=== PATIENT | female | born 1945 | race Caucasian/White ===

== ENCOUNTER 2017-03-19 10:27 | Inpatient (IN) | payer MEDICARE, OTHER ==
[~2017-03-19] VITALS: Ht 152.4 cm; Wt 76.7 kg
[2017-03-19 11:12] LABS: BASOPHIL % 0.7 % (0-2); PLATELET COUNT 179 x10^3mcL (130-400); RED CELL DISTRIBUTION WIDTH 14.3 % (11.5-14.5)
[2017-03-19] MEDS ORDERED: ASPIR 8181 MG PO (11:23)
[2017-03-19 11:24] LABS: CALCIUM 8.7 mg/dL (8.5-10.1); CARBON DIOXIDE 30.5 mmol/L (21-32); CHLORIDE SERUM 101 mmol/L (98-107); CREATININE SERUM 0.8 mg/dL (0.6-1.0); GLUCOSE SERUM 119 mg/dL (74-106); POTASSIUM SERUM 5.4 mmol/L (3.5-5.1); SODIUM SERUM 134 mmol/L (136-145)
[2017-03-19] MEDS ORDERED: METOPROLOL TART25 M1 PO (11:24)
[2017-03-19] MEDS ORDERED: ACETAMINOPHEN (11:25)
[2017-03-19] MEDS ORDERED: MILK OF MAGNESIA (11:27)
[2017-03-19 11:28] LABS: ALKALINE PHOSPHATASE 98 U/L (46-116); ALT/SGPT 22 U/L (14-59); AST/SGOT 23 U/L (15-37); BILIRUBIN TOTAL 0.47 mg/dL (0.20-1.00); LIPASE 125 IU/L (73-393); TOTAL PROTEIN, SERUM 7.6 g/dL (6.4-8.2); TRIGLYCERIDES 93 mg/dL (<150)
[2017-03-19] MEDS ORDERED: FLEET (11:28)
[2017-03-19] MEDS ORDERED: DULCOLAX SUPPOSITORY (11:29)
[2017-03-19 11:31] LABS: ALBUMIN 2.5 g/dL (3.4-5.0); CHOLESTEROL 130 mg/dL (<200); CHOLESTEROL/HDL RATIO 5.4; HDL CHOLESTEROL 24 mg/dL (40-60)
[2017-03-19] MEDS ORDERED: NORCO (11:31)
[2017-03-19 11:37] LABS: FREE T4 1.61 ng/dL (0.76-1.46); T4(THYROXINE) 9.9 ug/dL (4.7-13.3)
[2017-03-19 11:45] LABS: T3 TOTAL 0.9 ng/mL
[2017-03-19 14:15] VITALS: BP 163/79
[2017-03-19 14:31] VITALS: Ht 152.4 cm; Wt 76.7 kg
[2017-03-19 15:32] LABS: MAGNESIUM 2.2 mg/dL (1.8-2.4); PHOSPHOROUS 4.1 mg/dL (2.5-4.9)
[2017-03-19 17:09] VITALS: BP 118/72
[2017-03-19 18:12] LABS: RED BLOOD CELLS 3.09 M/mm3 (4.10-5.10)
[2017-03-19 18:52] LABS: IRON 29 ug/dL (50-170); TOTAL IRON BINDING CAPACITY 146 ug/dL (250-450)
[2017-03-19 21:08] VITALS: BP 142/66
[2017-03-20 05:47] VITALS: BP 127/76
[2017-03-20 06:18] LABS: BASOPHIL % 0.3 % (0-2); PLATELET COUNT 155 x10^3mcL (130-400); RED CELL DISTRIBUTION WIDTH 14.5 % (11.5-14.5)
[2017-03-20 06:23] LABS: CALCIUM 7.9 mg/dL (8.5-10.1); CARBON DIOXIDE 28.3 mmol/L (21-32); CHLORIDE SERUM 101 mmol/L (98-107); CREATININE SERUM 0.8 mg/dL (0.6-1.0); GLUCOSE SERUM 120 mg/dL (74-106); MAGNESIUM 1.9 mg/dL (1.8-2.4); POTASSIUM SERUM 3.8 mmol/L (3.5-5.1); SODIUM SERUM 135 mmol/L (136-145)
[2017-03-20 08:21] VITALS: BP 168/85
[2017-03-20 12:56] VITALS: BP 118/92
[2017-03-20 17:04] VITALS: BP 138/70
[2017-03-21 01:09] VITALS: BP 150/71
[2017-03-21 06:17] VITALS: BP 153/80
[2017-03-21 06:29] LABS: BASOPHIL % 0.4 % (0-2); PLATELET COUNT 161 x10^3mcL (130-400); RED CELL DISTRIBUTION WIDTH 14.4 % (11.5-14.5)
[2017-03-21 07:00] LABS: CALCIUM 8.1 mg/dL (8.5-10.1); CARBON DIOXIDE 27.9 mmol/L (21-32); CHLORIDE SERUM 102 mmol/L (98-107); CREATININE SERUM 0.9 mg/dL (0.6-1.0); GLUCOSE SERUM 143 mg/dL (74-106); POTASSIUM SERUM 3.7 mmol/L (3.5-5.1); SODIUM SERUM 136 mmol/L (136-145)
[2017-03-21 08:41] VITALS: BP 132/59
[2017-03-21] MEDS ORDERED: FER300 PO (13:55)
[2017-03-21] MEDS ORDERED: KEFLEX500 M1 PO ×2 (13:57→18:46)
[2017-03-21] MEDS ORDERED: LAC PO ×2 (13:58→18:46)
[2017-03-21] MEDS ORDERED: PHARMASSURE VI500 MG PO ×2 (14:00→18:46)
[2017-03-21 15:23] VITALS: BP 132/59
[2017-03-21] MEDS ORDERED: FERROUS SULFAT325 M2 PO (18:46)
== END 2017-03-21 17:35 | disposition home or self-care (01) | DRG 559 ==
LOC: ED 10:27 → DU 11:25 → MU 03-21 06:51
PROVIDERS: Neuromusculoskeletal Medicine, Sports Medicine; Specialist; ADMIT Family Medicine
PROC: 0YPB0YZ Removal of Other Device from Left Lower Extremity, Open Approach (ICD-10-PCS; principal; 2017-03-20 12:00)
DX: T84.621A Infection and inflammatory reaction due to internal fixation device of left femur, initial encounter (principal); N17.0 Acute kidney failure with tubular necrosis; E43 Unspecified severe protein-calorie malnutrition; E87.1 Hypo-osmolality and hyponatremia; B95.61 Methicillin susceptible Staphylococcus aureus infection as the cause of diseases classified elsewhere; E87.5 Hyperkalemia; I10 Essential (primary) hypertension; R73.03 Prediabetes; D64.9 Anemia, unspecified; Z68.34 Body mass index [BMI] 34.0-34.9, adult; Y79.2 Prosthetic and other implants, materials and accessory orthopedic devices associated with adverse incidents; Y83.4 Other reconstructive surgery as the cause of abnormal reaction of the patient, or of later complication, without mention of misadventure at the time of the procedure; Y92.009 Unspecified place in unspecified non-institutional (private) residence as the place of occurrence of the external cause
CPT/HCPCS: 82962; 83880; 84439; 97110-GP; J1644; J3370; J7030; Q0092